=== PATIENT | male | born 1965 | race Hispanic/Latino ===

== ENCOUNTER → 2020-03-03 | Outpatient (CLI) | payer BC ==
--- NOTE | 2020-03-03 12:46 | Diagnostic Imaging Report ---
Exam: Lumbar spine series Clinical history: Sciatica Findings: There is no evidence of acute fracture or malalignment. Degenerative disc disease is noted throughout the lumbar spine with loss in disc heights and marginal osteophytes. This is most pronounced at L5-S1 level. Impression: 1. No radiographic evidence of acute osseous injury. Degenerative changes as noted. Signed by: Dr. Jonathan Kruger MD on 03/03/2020 12:43 PM
--- NOTE | 2020-03-03 12:49 | Diagnostic Imaging Report ---
Exam: Sacrococcygeal series Clinical history: Sciatica Findings: There is no evidence of acute fracture or malalignment. Degenerative disc disease is noted with narrowing of the L4-L5 and L5-S1 disc spaces. Small marginal osteophytes are also noted. Mild sclerotic changes are noted in the superior margin of bilateral SI joints. The soft tissue is unremarkable. Impression: 1. No radiographic evidence of acute osseous injury. Degenerative changes as noted. Signed by: Dr. Jonathan Kruger MD on 03/03/2020 12:45 PM
== END ==
LOC: RAD 11:05
PROVIDERS: ATTEND Internal Medicine
DX: M54.5 Low back pain (principal)
CPT/HCPCS: 72110; 72220

== ENCOUNTER → 2020-03-29 | Outpatient (CLI) | payer BC ==
[~2020-03-29] MED LIST: LORAZEPAM INJ 2 MG/ML VIAL ONE
--- NOTE | 2020-03-29 15:26 | Diagnostic Imaging Report ---
Exam: Cervical spine MRI without IV contrast History: Low back pain Comparison studies: None Technique: Sagittal and axial T2 , sagittal T1 and IR, axial spin density oblique. Intravenous contrast: None Findings: Several pulse sequences are limited artifacts related to patient motion. Number of lumbar vertebral bodies: 5. Alignment: Normal lordosis. No scoliosis. Soft tissues: No T2 hyperintense inflammatory changes. Paraspinal muscles: No signal abnormalities. Well-preserved. No atrophic changes Lower thoracic cord: Normal in signal and morphology. The tip of the conus is at T12-L1. Cauda equina: No gross masses or arachnoiditis. Vertebrae: No compression fracture, infection or marrow edema. Incidental T1 hyperintense L3 vertebral body hemangioma. Degenerative changes: L1-L2: Mildly degenerated disc. Symmetric disc bulge results in mild canal stenosis. No significant foraminal stenosis. L2-L3: Mildly degenerated disc. Symmetric disc bulge and mild facet arthrosis result in mild canal and bilateral foraminal stenosis. L3-L4: Mildly degenerated disc. Symmetric disc bulge and mild facet arthrosis. Do not result in significant canal or foraminal stenosis. L4-L5: Mildly degenerated disc. Disc bulge with possible superior migrated left-central disc extrusion, thickened ligamentum flavum and facet arthrosis which result in moderate to severe canal stenosis and mild bilateral foraminal stenosis. L5-S1: Mildly degenerated disc. Disc bulge with superimposed small central disc extrusion and facet arthrosis result in moderate canal stenosis, narrowing of the bilateral subarticular recesses and moderate bilateral foraminal stenosis. IMPRESSION: Limited exam due to patient motion. In spite of limitations: 1. Mild multilevel disc degeneration. 2. Moderate to severe canal stenosis at L4-L5 where there is a possible small left central disc extrusion. 3. Moderate canal stenosis, lateral recess stenosis and bilateral foraminal stenosis with small central disc extrusion at L5-S1. 4. Lower lumbar facet arthrosis without evidence of synovitis. Signed by: Dr. Ephraim Rivera M.D. on 03/29/2020 3:23 PM
--- NOTE | 2020-03-30 08:43 | Diagnostic Imaging Report ---
TECHNIQUE: Magnetic resonance imaging of the sacrum was performed WITHOUT injected contrast using standard departmental protocols. HISTORY: Low back pain COMPARISON: None. FINDINGS: Bone and bone marrow: No focal or infiltrative bone marrow replacing abnormality. No fracture or osteonecrosis. Sacroiliac joint: Degenerative arthrosis of the sacroiliac joints with some osseous bridging superiorly on the right Lower lumbar spine and lumbosacral nerve roots: Disc bulges of L4-L5 and L5-S1 and lower lumbar facet arthrosis. No mass effect on the exited lumbosacral nerve roots or sciatic nerve Soft tissues: Otherwise unremarkable. 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 Signed by: Dr. Marcus Monson M.D. on 03/30/2020 8:40 AM
== END ==
LOC: MRI 03-22 09:30
PROVIDERS: ATTEND Internal Medicine
DX: M54.5 Low back pain (principal)
CPT/HCPCS: 72148; 72195; J2060